=== PATIENT | male | born 1980 | race Two or more races ===

== ENCOUNTER → 2017-01-25 | Outpatient (CLI) | payer OTHER ==
--- NOTE | 2017-01-25 15:52 | REP ---
Clinical: Scrotal mass. Technique: Real time glaser scale and color Doppler evaluation using linear high frequency transducer. Comparison: None available. Findings: The right testicle includes a hypervascular, hypoechoic well-circumscribed mass lesion measuring 5 mm diameter with small mural calcifications and is concerning for neoplasm. Few bilateral benign appearing epididymal head cysts are identified along with 2-3 left testicular microcalcifications and small bilateral hydroceles. Early left-sided varicoceles measure up to 3 mm on Valsalva. Right testicle measures 4.8 x 2.0 x 3.2 cm. Left testicle measures 4.8 x 2.3 x 3.0 cm. Impression: 1. 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 Urology consultation is recommended. 2. Further relatively insignificant findings include small bilateral epididymal head cysts, few testicular micro calcifications, small bilateral hydroceles and early left-sided varicoceles. Signed by Anand Orta MD 01/25/2017 03:43 P
== END ==
LOC: M SMT 14:45
PROVIDERS: ATTEND Nurse Practitioner Women's Health
DX: N50.3 Cyst of epididymis (principal); N43.3 Hydrocele, unspecified; I86.1 Scrotal varices

== ENCOUNTER 2017-07-26 13:14 | Day surgery (SDC) | payer OTHER ==
[2017-07-26] MEDS: LR 1,000 ML IV (13:55)
[2017-07-26] MEDS ORDERED: PROPOFOL 200 MG/20 ML VIAL As Ordered ×2 (15:13→16:32)
[2017-07-26] MEDS ORDERED: ONDANSETRON 4MG/2ML VIAL (J2405) As Ordered (15:13)
[2017-07-26] MEDS ORDERED: fentaNYL 100 MCG/2 ML INJECTION (J3010) As Ordered ×2 (15:13→16:37)
[2017-07-26] MEDS ORDERED: dexameTHASONE 4 MG/ML 1ML VIAL (J1100) As Ordered ×2 (15:13→15:18)
[2017-07-26] MEDS ORDERED: MIDAZOLAM INJ 2 MG/2 ML VIAL (J2250) As Ordered (15:13)
[2017-07-26] MEDS ORDERED: LIDOCAINE 2% INJ 100 MG/5 ML SDV (FOR ANES.) As Ordered (15:13)
[2017-07-26] MEDS: LevoFLOXacin IV 500 MG in APPROPRIATE DILUENT 1 EA IV (15:47)
[2017-07-26] MEDS: BUPIVACAINE HCL 0.25% 10 ML VIAL As Ordered ×2 (16:01→16:51)
[2017-07-26] MEDS: LIDOCAINE 2% MDV 20 ML VIAL As Ordered (16:02)
[2017-07-26] MEDS ORDERED: GLYCOPYRROLATE INJ 0.2 MG/ML 2 ML VIAL As Ordered (16:42)
[2017-07-26] MEDS: LIDOCAINE PRES-FREE 2% 10ML AMP As Ordered (16:51)
[2017-07-26] MEDS ORDERED: KETOROLAC 60 MG/2 ML VIAL (J1885) As Ordered (17:17)
[2017-07-26] MEDS ORDERED: LR 1,000 ML IV (17:45)
[2017-07-26] MEDS ORDERED: fentaNYL 100 MCG/2 ML INJECTION (J3010) IV (17:45)
[2017-07-26] MEDS ORDERED: MORPHINE 10 MG/ML 1ML VIAL (J2270) IV (17:45)
[2017-07-26] MEDS: PERCOCET 5MG/325MG TAB PO ×2 (17:53→18:17)
[2017-07-26] MEDS ORDERED: PERCOCET 5MG/325MG TAB PO (18:00)
[2017-07-26] MEDS: METOCLOPRAMIDE INJ 10MG/2ML VIAL (J2765) IV (18:06)
[2017-07-26] MEDS: ONDANSETRON 4MG/2ML VIAL (J2405) IV (18:06)
== END 2017-07-26 20:00 | disposition home or self-care (01) ==
LOC: M SDC 13:14
DX: D40.11 Neoplasm of uncertain behavior of right testis (principal); Z88.0 Allergy status to penicillin; Z88.7 Allergy status to serum and vaccine
CPT/HCPCS: 54530

== ENCOUNTER → 2017-08-11 | Outpatient (CLI) | payer OTHER ==
[~2017-08-11] MED LIST: GASTROGRAFIN SOLUTION 30ML (Q9963) As Ordered; ISOVUE-370 76% 100ML VIAL (Q9967) As Ordered
== END ==
LOC: M RAD 14:19
DX: D49.59 Neoplasm of unspecified behavior of other genitourinary organ (principal)
CPT/HCPCS: Q9963